=== PATIENT | female | born 1970 | race Caucasian/White ===

== ENCOUNTER → 2019-07-07 | Outpatient (CLI) | payer MEDICAID ==
--- NOTE | 2019-07-07 13:36 | MM ---
Reason for exam: clinical finding. Last mammogram was performed 5 years and 9 months ago. History: Patient had first child at age 34. Took hormonal contraceptives for 1 year beginning at age 34. Physical Findings: Nurse did not find any significant physical abnormalities on exam. MG Diagnostic Mammo w CAD PAMELLA Bilateral CC, MLO, and XCCL view(s) were taken. Prior study comparison: September 22, 2013, bilateral digital screening mammo w/CAD. July 31, 2011, bilateral digital screening mammo w/CAD. The breast tissue is heterogeneously dense. This may lower the sensitivity of mammography. Focal asymmetry right upper outer quadrant. No discrete palpable today, no BB was placed. No significant new findings when compared with previous films. These results were verbally communicated with the patient and result sheet given to the patient on 07/07/19. ASSESSMENT: Benign, BI-RAD 2 RECOMMENDATION: Routine screening mammogram of both breasts in 1 year.
--- NOTE | 2019-07-07 13:37 | USB ---
Reason for exam: clinical finding. History: Patient had first child at age 34. Took hormonal contraceptives for 1 year beginning at age 34. US Breast LT Left complete breast ultrasound includes all four quadrants, the retroareolar region and axilla. Finding demonstrates no cystic or solid lesion seen. These results were verbally communicated with the patient and result sheet given to the patient on 07/07/19. ASSESSMENT: Negative, BI-RAD 1 RECOMMENDATION: Routine screening mammogram of both breasts in 1 year. Manage patient on a clinical basis.
== END | disposition home or self-care (01) ==
LOC: RADMAMWWP 07:09
PROVIDERS: ATTEND Obstetrics & Gynecology
DX: N63.20 Unspecified lump in the left breast, unspecified quadrant (principal)
CPT/HCPCS: 77066

== ENCOUNTER 2020-05-14 11:00 | Emergency (ER) | payer MEDICAID, OTHER ==
[2020-05-14 11:10] VITALS: BP 163/93; PULSE 69; RESP 18; TEMP 98.8
--- NOTE | 2020-05-14 11:20 | ED ---
Recheck HPI - General Chief Complaint: Needlestick/Exposure Stated Complaint: [facility] - needlestick Time Seen by Provider: 05/14/20 11:12 Source: patient Mode of arrival: ambulatory Limitations: no limitations - History of Present Illness Initial Comments: 50yo female presenting for cc of right thumb needle stick. patient states that she stuck herself wtih a diabetic needle. 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 pt denies hx HIV, Hepatitis. pt believes she has hepatitis B vaccination. patient has no additional complaints. - Related Data Allergies Allergy/AdvReac Type Severity Reaction Status Date / Time No Known Allergies Allergy Verified 05/14/20 11:10 Review of Systems ROS Statement: Those systems with pertinent positive or pertinent negative responses have been documented in the HPI. ROS Other: All systems not noted in ROS Statement are negative. Past Medical History Past Medical History: Hypertension History of Any Multi-Drug Resistant Organisms: None Reported Past Surgical History: No Surgical Hx Reported Past Psychological History: No Psychological Hx Reported Smoking Status: Never smoker Past Alcohol Use History: None Reported Past Drug Use History: None Reported General Exam - General Exam Comments Initial Comments: Exam: MSK: NO obvious lesion, no bleeding. Limitations: no limitations Course Vital Signs 05/14/20 11:09 Temperature 98.8 F Pulse Rate 69 Respiratory 18 Rate Blood Pressure 163/93 O2 Sat by Pulse 98 Oximetry Medical Decision Making - Medical Decision Making HIV/Hepatitis testing at this time pending. Source will be tested. pt will be notified. pt does not want HIV prophlyaxis unless the source returns positive. pt discharged appearing well. Disposition Clinical Impression: Needlestick injury of finger Disposition: HOME SELF-CARE Condition: Good Is patient prescribed a controlled substance at d/c from ED?: No Referrals: Brandon Pérez MD [Primary Care Provider] - 1-2 days Time of Disposition: 11:49
== END 2020-05-14 11:38 | disposition home or self-care (01) ==
LOC: EC 11:00
DX: S69.91XA Unspecified injury of right wrist, hand and finger(s), initial encounter (principal); W46.0XXA Contact with hypodermic needle, initial encounter; Y92.69 Other specified industrial and construction area as the place of occurrence of the external cause; Y99.0 Civilian activity done for income or pay
CPT/HCPCS: 99283

== ENCOUNTER → 2021-03-07 | Outpatient (CLI) | payer MEDICAID, OTHER | END | disposition home or self-care (01) | LOC: LABWHC1 11:01 | PROVIDERS: ATTEND Emergency Medicine | DX: Z20.822 Contact with and (suspected) exposure to COVID-19 (principal) | CPT/HCPCS: 87635 ==

== ENCOUNTER → 2021-04-03 | Outpatient (CLI) | payer MEDICAID ==
[2021-04-03 18:10] LABS: HCT 41.4 % (37.2-46.3); HGB 13.4 g/dL (12.0-15.0); MCH 29.1 pg (27.0-32.0); MCHC 32.4 g/dL (32.0-37.0); Mean Platelet Volume 11.8 fL (9.5-12.2); Platelet Count 193 X 10*3/uL (140-440); RDW 11.8 % (11.5-14.5); WBC 7.13 X 10*3/uL (4.50-10.00)
[2021-04-03 19:52] LABS: African American GFR (CKD) 122.3 (60.0-200.0); Albumin 4.4 g/dL (3.8-4.9); Albumin/Globulin Ratio 1.52 (1.60-3.17); Anion Gap 13.6 mmol/L (4.00-12.00); Blood Urea Nitrogen 12.6 mg/dL (9.0-27.0); Calcium 9.5 mg/dL (8.7-10.3); Carbon Dioxide 22.4 mmol/L (21.6-31.8); Chol/HDL Ratio 5.02 Ratio; Globulin 2.9 g/dL (1.6-3.3); LDL Cholesterol,Calculated 116.4 mg/dL (0.0-131.0); Non-African American GFR(CKD) 105.5 (60.0-200.0); Potassium 3.9 mmol/L (3.5-5.5); Total Bilirubin 0.4 mg/dL (0.30-1.20); Total Protein 7.3 g/dL (6.2-8.2); VLDL Calculation 52.6 mg/dL (5.00-40.00)
== END | disposition home or self-care (01) ==
LOC: LABWHC1 12:10
PROVIDERS: ATTEND Internal Medicine
DX: I10 Essential (primary) hypertension (principal); R73.9 Hyperglycemia, unspecified
CPT/HCPCS: 36415; 80053; 80061; 83036; 84443; 85027

== ENCOUNTER → 2021-05-15 | Outpatient (CLI) | payer MEDICAID ==
--- NOTE | 2021-05-15 17:34 | ECHOF ---
Referral Reason:I10 Essential (primary) hypertension MEASUREMENTS -------- HEIGHT: 165.1 cm WEIGHT: 83.9 kg BP: 143/68 RVIDd: 2.7 cm (< 3.3) IVSd: 1.2 cm (0.6 - 1.1) LVIDd: 4.0 cm (3.9 - 5.3) LVPWd: 1.2 cm (0.6 - 1.1) IVSs: 1.7 cm LVIDs: 2.7 cm LVPWs: 1.6 cm LA Diam: 3.0 cm (2.7 - 3.8) LAESV Index (A-L): 14.51 ml/m Ao Diam: 3.2 cm (2.0 - 3.7) AV Cusp: 2.1 cm (1.5 - 2.6) MV EXCURSION: 13.341 mm (> 18.000) MV EF SLOPE: 46 mm/s (70 - 150) EPSS: 0.3 cm MV E Jack: 1.06 m/s MV DecT: 213 ms MV A Jack: 0.91 m/s MV E/A Ratio: 1.16 FINDINGS -------- Sinus rhythm. This was a technically adequate study. The left ventricular size is normal. There is borderline concentric left ventricular hypertrophy. Overall left ventricular systolic function is normal with, an EF between 60 - 65 %. The right ventricle is normal in size. Normal LA size by volume 22+/-6 ml/m2. The right atrium is normal in size. Interatrial and interventricular septum intact. The aortic valve is trileaflet, and appears structurally normal. No aortic stenosis or regurgitation. The mitral valve is normal. The tricuspid valve appears structurally normal. Unable to estimate RVSP due to inadequate TR jet s pectral doppler profile. The pulmonic valve is normal. The aortic root size is normal. Normal inferior vena cava with normal inspiratory collapse consistent with estimated right atrial pre ssure of 5 mmHg. There is no pericardial effusion. CONCLUSIONS -------- 1. The left ventricular size is normal. 2. There is borderline concentric left ventricular hypertrophy. 3. Overall left ventricular systolic function is normal with, an EF between 60 - 65 %. 4. The aortic valve is trileaflet, and appears structurally normal. No aortic stenosis or regurgitati on. 5. There is no pericardial effusion. CHANNEL MAN: Faye Raymundo RDCS
== END | disposition home or self-care (01) ==
LOC: RADECHMAIN 11:36
PROVIDERS: ATTEND Internal Medicine
DX: I51.7 Cardiomegaly (principal); I10 Essential (primary) hypertension
CPT/HCPCS: 93306

== ENCOUNTER → 2021-12-09 | Outpatient (CLI) | payer MEDICAID ==
--- NOTE | 2021-12-09 13:23 | US ---
EXAMINATION TYPE: US pelvic complete DATE OF EXAM: 12/09/2021 COMPARISON: NONE CLINICAL HISTORY: N92.1 excessive/frequent menstruation. Pt states abnormal vaginal bleedind- recentl y had IUD removed TECHNIQUE: Transabdominal (TA). Transabdominal sonographic images of the pelvis were acquired. Date of LMP: 11/25/2021 EXAM MEASUREMENTS: Uterus: 8.3 x 4.1 x 5.1 cm Endometrial Stripe: 0.8 cm Right Ovary: 3.4 x 3.2 x 2.3 cm Left Ovary: 2.7 x 2.3 x 2.5 cm 1. Uterus: Anteverted Heterogeneous 2. Endometrium: wnl 3. Right Ovary: Echogenic focus within right ovary= 0.7 x 0.6 x 0.8 cm 4. Left Ovary: Small Cyst= 2.0 x 1.6 x 1.7 cm 5. Bilateral Adnexa: wnl 6. Posterior cul-de-sac: wnl IMPRESSION: 1. nonspecific heterogeneity of the uterine myometrium. 2. Small cyst left ovary.
[2021-12-09 19:43] LABS: ALT 18 U/L (8-44); AST 23 U/L (13-35); African American GFR (CKD) 121.9 (60.0-200.0); Albumin 4.6 g/dL (3.8-4.9); Albumin/Globulin Ratio 1.71 (1.60-3.17); Alkaline Phosphatase 41 U/L (41-126); BUN/Creat Ratio 22.24 Ratio (12.00-20.00); Blood Urea Nitrogen 13.5 mg/dL (9.0-27.0); Calcium 9.5 mg/dL (8.7-10.3); Carbon Dioxide 26.3 mmol/L (20.0-27.5); Chloride 100 mmol/L (96-109); Chol/HDL Ratio 4.93 Ratio; Globulin 2.7 g/dL (1.6-3.3); Glucose 104 mg/dL (70-110); LDL Cholesterol,Calculated 163.1 mg/dL (0.0-131.0); Non-African American GFR(CKD) 105.1 (60.0-200.0); Potassium 4.2 mmol/L (3.5-5.5); Sodium 139 mmol/L (135-145); Total Protein 7.2 g/dL (6.2-8.2)
--- NOTE | 2021-12-10 07:43 | MM ---
Reason for Exam: Screening (asymptomatic). Last mammogram was performed 2 year(s) and 5 month(s) ago. Patient History: Menarche at age 11. First Full-Term at age 34. Late child-bearing (after 30). Hormonal Contraceptives for 1 year from age 34 until age 40. Last menstrual period: 11/25/2021 Risk Values: Alanna 5 year model risk: 1.5%. NCI Lifetime model risk: 13.0%. Prior Study Comparison: 07/31/2011 Bilateral Screening Mammogram, [facility]. 09/22/2013 Bilateral Screening Mammogram, [facility]. 07/07/2019 Bilateral Diagnostic Mammogram, [facility]. Tissue Density: The breast tissue is heterogeneously dense. This may lower the sensitivity of mammography. Findings: Analyzed By CAD. There is no suspicious group of microcalcifications or new suspicious mass in either breast. Overall Assessment: Negative, BI-RAD 1 Management: Screening Mammogram of both breasts. A clinical breast exam by your physician is recommended on an annual basis and results should be correlated with mammographic findings. Electronically signed and approved by: Farzad Vee M.D. Radiologis
== END | disposition home or self-care (01) ==
LOC: RADUSWWP 12:26
PROVIDERS: ATTEND Obstetrics & Gynecology
DX: Z12.31 Encounter for screening mammogram for malignant neoplasm of breast (principal); Z11.3 Encounter for screening for infections with a predominantly sexual mode of transmission; Z13.29 Encounter for screening for other suspected endocrine disorder; N92.1 Excessive and frequent menstruation with irregular cycle; E78.00 Pure hypercholesterolemia, unspecified; E11.65 Type 2 diabetes mellitus with hyperglycemia
CPT/HCPCS: 76856; 77063; 77067; 80053; 80061; 83036; 84439; 84443; 86780

== ENCOUNTER → 2024-06-09 | Outpatient (CLI) | payer MEDICAID ==
--- NOTE | 2024-06-09 09:32 | MM ---
Reason for Exam: Screening (asymptomatic). Last mammogram was performed 2 year(s) and 6 month(s) ago. Patient History: Menarche at age 11. First Full-Term at age 34. Late child-bearing (after 30). Perimenopausal. Hormonal Contraceptives for 1 year from age 34 until age 40. Risk Values: Alanna 5 year model risk: 1.7%. NCI Lifetime model risk: 12.4%. Prior Study Comparison: 09/22/2013 Bilateral Screening Mammogram, [facility]. 07/07/2019 Bilateral Diagnostic Mammogram, [facility]. 12/09/2021 Bilateral MG 3D screening mammo w/cad, [facility]. Tissue Density: There are scattered areas of fibroglandular density. Findings: Analyzed By CAD. Left breast surgical clips. Right breast: There is no suspicious group of microcalcifications or new suspicious mass. Left breast: There is no suspicious group of microcalcifications or new suspicious mass. There remains a top pack clip in the left breast. Overall Assessment: Benign, BI-RAD 2 Management: Screening Mammogram of both breasts in [address] [facility] will attempt to contact patient to return for supplemental views and ultrasound if indicated. Patient should continue monthly self-breast exams. A clinical breast exam by your physician is recommended on an annual basis. This exam should not preclude additional follow-up of suspicious palpable abnormalities. Note on Alanna scores and lifetime risk: 1. A Alanna score greater than 3% is considered moderate risk. If this is the case, consider specialist referral to assess eligibility for a risk reducing agent. 2. If overall lifetime risk for the development of breast cancer is 20% or higher, the patient may qualify for future screening with alternating mammogram and breast MRI. [facility], , 06/09/2024 9:29 AM. Electronically signed and approved by: Tavares Mitchell DO
== END | disposition home or self-care (01) ==
LOC: RADMAMWWP 07:52
PROVIDERS: ATTEND Internal Medicine Geriatric Medicine
DX: Z12.31 Encounter for screening mammogram for malignant neoplasm of breast (principal); R92.323 Mammographic fibroglandular density, bilateral breasts; Z98.82 Breast implant status
CPT/HCPCS: 77063; 77067

== ENCOUNTER → 2024-06-09 | Outpatient (CLI) | payer MEDICAID ==
[2024-06-09 15:04] LABS: Basophils # (A) 0.02 X 10*3/uL (0.00-0.10); Basophils % (A) 0.4 %; Eosinophils # (A) 0.07 X 10*3/uL (0.04-0.35); Eosinophils % (A) 1.4 %; HCT 43.6 % (37.2-46.3); HGB 13.8 g/dL (12.0-15.0); Lymphocytes # (A) 1.32 X 10*3/uL (0.90-5.00); Lymphocytes % (A) 27.3 %; MCH 28.6 pg (27.0-32.0); MCHC 31.7 g/dL (32.0-37.0); MCV 90.5 FL (80.0-97.0); Mean Platelet Volume 11.4 FL (9.5-12.2); Monocytes # (A) 0.46 X 10*3/uL (0.20-1.00); Monocytes % (A) 9.5 %; NRBC Per 100 WBC 0 X 10*3/uL (0.00-0.01); Neutrophils # (A) 2.95 X 10*3/uL (1.80-7.70); Neutrophils % (A) 61.2 %; Platelet Count 224 X 10*3/uL (140-440); RBC 4.82 X 10*6/uL (4.10-5.20); RDW 11.3 % (11.5-14.5); WBC 4.83 X 10*3/uL (4.50-10.00)
[2024-06-09 15:40] LABS: BUN/Creat Ratio 18.14 Ratio (12.00-20.00); Blood Urea Nitrogen 12.7 mg/dL (9.0-27.0); Chloride 105 mmol/L (96-109); Chol/HDL Ratio 5.32 Ratio; Glucose 137 mg/dL (70-110); LDL Cholesterol,Calculated 158.1 mg/dL (0.0-131.0); Potassium 4.3 mmol/L (3.5-5.5); Sodium 140 mmol/L (135-145)
[2024-06-09 15:41] LABS: ALT 12 U/L (8-44); AST 17 U/L (13-35); Albumin 4.7 g/dL (3.8-4.9); Albumin/Globulin Ratio 1.68 Ratio (1.60-3.17); Alkaline Phosphatase 51 U/L (41-126); Calcium 9.4 mg/dL (8.7-10.3); Carbon Dioxide 24.9 mmol/L (21.6-31.8); Globulin 2.8 g/dL (1.6-3.3); Total Bilirubin 0.4 mg/dL (0.3-1.2); Total Protein 7.5 g/dL (6.2-8.2)
== END | disposition home or self-care (01) ==
LOC: LABWHC1 08:19
PROVIDERS: ATTEND Internal Medicine Geriatric Medicine
DX: E78.2 Mixed hyperlipidemia (principal); E55.9 Vitamin D deficiency, unspecified; R73.9 Hyperglycemia, unspecified; R94.6 Abnormal results of thyroid function studies
CPT/HCPCS: 36415; 80053; 80061; 82306; 83036; 84443; 85025